=== PATIENT | female | born 1975 | race Two or more races ===

== ENCOUNTER 2019-11-28 18:18 | Emergency (ER) | payer MEDICAID ==
[~2019-11-28] VITALS: Ht 167.6 cm; Wt 61.0 kg
[2019-11-28] MEDS ORDERED: HYDROCODONE/ACETAMINOPHEN 5/325MG TABLET PO STA (19:07)
[2019-11-28] MEDS ORDERED: ASPIRIN 325MG TABLET PO ONE (19:45)
[2019-11-28 20:55] LABS: BASOPHILS % 0.5 % (0.0-2.0); HEMATOCRIT. 39.7 % (36.0-48.0); HEMOGLOBIN. 13.8 g/dL (12.0-16.0); LYMPHOCYTES % 25.5 % (20.0-50.0); MEAN CORPUSCULAR HEMOGLOBIN 30.5 pg (28.0-32.0); MEAN CORPUSCULAR VOLUME 87.8 fL (81.0-99.0); MEAN PLATELET VOLUME 9.7 fl (7.4-10.4); MONOCYTES % 9.4 % (2.0-8.0); NEUTROPHILS % 63.6 % (40.0-76.0); PLATELET 243 x1000/uL (130-400); RED BLOOD CELL COUNT 4.52 mill/uL (4.2-5.4); RED CELL DISTRIBUTION WIDTH 12.8 % (11.6-14.6)
[2019-11-28 21:03] LABS: CHLORIDE 108 mEq/L (98-107)
[2019-11-28] MEDS ORDERED: MAGNESIUM/ALUMINUM HYDROXIDE/SIMETHICONE 30ML UDC PO ONE (22:15)
[2019-11-28] MEDS ORDERED: FAMOTIDINE 20MG TABLET PO ONE (22:15)
[2019-11-29 00:24] VITALS: BP 114/66
== END 2019-11-29 00:26 | disposition home or self-care (01) ==
LOC: ER 18:18
DX: R07.9 Chest pain, unspecified (principal)
CPT/HCPCS: 36415; 71045; 80053; 83880; 84484; 85025; 93005; 99285

== ENCOUNTER 2020-08-11 16:34 | Emergency (ER) | payer MEDICAID ==
[~2020-08-11] VITALS: Ht 162.6 cm; Wt 63.0 kg
[2020-08-11] MEDS ORDERED: TETANUS, DIPHTHERIA, PERTUSSIS VAC/PF 0.5ML (>7YR OLD) IM ONE (17:15)
[2020-08-11] MEDS ORDERED: IBUPROFEN 600MG TABLET PO ONE (17:15)
[2020-08-11] MEDS ORDERED: BACITRACIN ZINC OINT UDPKT TOP ONE (17:15)
[2020-08-11 17:26] VITALS: BP 125/71
[2020-08-11] MEDS ORDERED: IBUP-2029 MT (17:45)
[2020-08-11] MEDS ORDERED: BO1 TP (17:45)
== END 2020-08-11 18:13 | disposition home or self-care (01) ==
LOC: ER 16:37
DX: S60.052A Contusion of left little finger without damage to nail, initial encounter (principal); S60.417A Abrasion of left little finger, initial encounter; W45.8XXA Other foreign body or object entering through skin, initial encounter; Y93.89 Activity, other specified; Y92.010 Kitchen of single-family (private) house as the place of occurrence of the external cause; Y99.8 Other external cause status
CPT/HCPCS: 73140; 90471; 90715; 99283; Z7610

== ENCOUNTER 2022-03-13 17:42 | Emergency (ER) | payer MEDICAID ==
[~2022-03-13] VITALS: Ht 167.6 cm; Wt 65.0 kg
[~2022-03-13 17:42] MED LIST: BO1 TP; IBUP-2029 MT
[2022-03-13 17:53] VITALS: BP 141/80
[2022-03-13] MEDS ORDERED: NAPR-1176 MT (19:56)
[2022-03-13] MEDS ORDERED: IBUPROFEN 600MG TABLET PO ONE (20:00)
== END 2022-03-13 20:16 | disposition home or self-care (01) ==
LOC: ER 17:47
DX: S46.212A Strain of muscle, fascia and tendon of other parts of biceps, left arm, initial encounter (principal); X58.XXXA Exposure to other specified factors, initial encounter; Y93.9 Activity, unspecified; Y92.9 Unspecified place or not applicable
CPT/HCPCS: 99282

== ENCOUNTER 2023-06-25 18:27 | Emergency (ER) | payer MEDICAID, OTHER ==
[~2023-06-25] VITALS: Ht 160 cm; Wt 64.0 kg
[~2023-06-25 18:27] MED LIST changes: +NAPR-1176 MT
[2023-06-25 18:31] VITALS: TEMP 98.6; O2SAT 99
[2023-06-25] MEDS ORDERED: NAPROXEN 375MG TABLET PO ONE (19:15)
[2023-06-25 20:21] VITALS: BP 128/80; PULSE 80; RESP 16
[2023-06-25] MEDS: NAPROXEN 500MG TABLET PO NR (20:23)
[2023-06-25] MEDS ORDERED: NAPR-1176 MT (20:54)
== END 2023-06-25 21:09 | disposition home or self-care (01) ==
LOC: ER 18:27
DX: M25.562 Pain in left knee (principal)
CPT/HCPCS: 73562; 99283

== ENCOUNTER 2024-05-16 18:05 | Emergency (ER) | payer OTHER ==
[~2024-05-16] VITALS: Ht 160 cm; Wt 63.0 kg
[2024-05-16 18:19] VITALS: TEMP 36.8; O2SAT 99
[2024-05-16] MEDS ORDERED: NEOM1PAC6 TP (19:44)
[2024-05-16 20:08] VITALS: BP 134/83; PULSE 86; RESP 16; O2SAT 98
[2024-05-16] MEDS: BACITRACIN ZINC OINT UDPKT TOP ONE (20:08)
[2024-05-16] MEDS: TETANUS, DIPHTHERIA, PERTUSSIS VAC/PF 0.5ML (>10YR OLD) IM ONE (20:09)
== END 2024-05-16 20:08 | disposition home or self-care (01) ==
LOC: ER 18:05
DX: S61.213A Laceration without foreign body of left middle finger without damage to nail, initial encounter (principal); Z23 Encounter for immunization; Z79.899 Other long term (current) drug therapy; W26.0XXA Contact with knife, initial encounter; Y93.89 Activity, other specified; Y92.89 Other specified places as the place of occurrence of the external cause; Y99.8 Other external cause status
CPT/HCPCS: 90715; 90471; 99283; Z7610